=== PATIENT | female | born 1950 | race Asian ===

== ENCOUNTER → 2023-04-26 | Outpatient (CLI) | payer OTHER ==
[2023-04-26 09:17] LABS: Basophils # (auto) 0.1 10 ^3/uL (0-0.2); Basophils % (auto) 1.3 % (0.0-2.0); Eosinophils # (auto) 0.2 10 ^3/uL (0-0.8); Eosinophils % (auto) 1.8 % (0.0-7.0); Hematocrit 45.1 % (36.0-46.0); Hemoglobin 14.9 g/dL (12.2-16.2); Lymphocytes # (auto) 1.7 10 ^3/uL (0.4-5.4); Lymphocytes % (auto) 20.6 % (10.0-50.0); Mean Corpuscular Hemoglobin 30.7 pg (28.0-32.0); Mean Corpuscular Volume 93.1 fL (80.0-100.0); Monocytes # (auto) 0.4 10 ^3/uL (0-1.3); Monocytes % (auto) 5.1 % (0.0-12.0); Neutrophils % (auto) 71.2 % (37.0-80.0); Nucleated Red Blood Cells % 0.1 %; Red Blood Cells 4.85 10^6/uL (4.0-5.20); Red Cell Distribution Width 12.8 % (11.8-14.3); White Blood Cell 8.4 10^3/uL (4.4-10.8)
[2023-04-26 10:05] LABS: Potassium 4.4 mmol/L (3.5-5.1)
[2023-04-26 10:13] LABS: BUN/Creatinine Ratio 11.6 (10.0-20.0); Bilirubin, Total 0.4 mg/dL (0.2-1.0); Calcium 9.3 mg/dL (8.5-10.1); Total Protein 8.6 g/dL (6.4-8.2); Uric Acid 6.8 mg/dL (2.6-6.0)
== END | disposition home or self-care (01) ==
LOC: LAB 08:39
PROVIDERS: ATTEND Family Medicine
DX: I10 Essential (primary) hypertension (principal); R73.03 Prediabetes; D69.2 Other nonthrombocytopenic purpura; R73.09 Other abnormal glucose; E78.5 Hyperlipidemia, unspecified; E55.9 Vitamin D deficiency, unspecified; E78.2 Mixed hyperlipidemia; E79.0 Hyperuricemia without signs of inflammatory arthritis and tophaceous disease; G63 Polyneuropathy in diseases classified elsewhere
CPT/HCPCS: 36415; 80053; 80061; 82270; 83036; 84550; 85025

== ENCOUNTER → 2023-09-21 | Outpatient (CLI) | payer OTHER ==
[2023-09-21 08:34] LABS: Alanine Aminotransferase 17 U/L (7-40); Albumin 4.8 g/dL (3.2-4.8); Alkaline Phosphatase 88 U/L (46-116); Anion Gap 9 (5-15); Aspartate Aminotransferase 19 U/L (13-40); BUN/Creatinine Ratio 13.3 (10.0-20.0); Bilirubin, Total 0.7 mg/dL (0.2-1.0); Blood Urea Nitrogen 12 mg/dL (9-23); Calcium 9.8 mg/dL (8.5-10.1); Carbon Dioxide 27 mmol/L (20-30); Chloride 105 mmol/L (98-107); Cholesterol 170 mg/dL (< 200); Glucose 146 mg/dL (74-106); HDL Cholesterol 64 mg/dL (40-59); LDL Cholesterol 96 mg/dL (< 100); Sodium 141 mmol/L (136-145); Total Protein 8.2 g/dL (5.7-8.2); Triglycerides 131 mg/dL (< 150)
[2023-09-21 09:12] LABS: Uric Acid 6.9 mg/dL (3.1-7.8)
== END | disposition home or self-care (01) ==
LOC: LAB 07:28
PROVIDERS: ATTEND Family Medicine
DX: E78.2 Mixed hyperlipidemia (principal); E55.9 Vitamin D deficiency, unspecified; I69.30 Unspecified sequelae of cerebral infarction; R73.03 Prediabetes; Z79.01 Long term (current) use of anticoagulants
CPT/HCPCS: 36415; 80053; 80061; 83036; 84550

== ENCOUNTER → 2024-08-01 | Outpatient (CLI) | payer OTHER ==
[2024-08-01 08:24] LABS: Basophils # (auto) 0.1 10 ^3/uL (0-0.2); Basophils % (auto) 0.8 % (0.0-2.0); Eosinophils # (auto) 0.3 10 ^3/uL (0-0.8); Hematocrit 46.1 % (36.0-46.0); Hemoglobin 15.8 g/dL (12.2-16.2); Lymphocytes # (auto) 2.1 10 ^3/uL (0.4-5.4); Lymphocytes % (auto) 24.7 % (10.0-50.0); Mean Corpuscular Hemoglobin 31.5 pg (28.0-32.0); Mean Corpuscular Hgb Conc. 34.2 g/dL (32.0-36.0); Mean Corpuscular Volume 92.2 fL (80.0-100.0); Monocytes # (auto) 0.6 10 ^3/uL (0-1.3); Monocytes % (auto) 7.2 % (0.0-12.0); Neutrophils # (auto) 5.5 10 ^3/uL (1.6-8.6); Neutrophils % (auto) 64.3 % (37.0-80.0); Nucleated Red Blood Cells % 0.1 %; Platelet Count (auto) 261 10^3/uL (140-450); Red Cell Distribution Width 13.3 % (11.8-14.3); White Blood Cell 8.5 10^3/uL (4.4-10.8)
[2024-08-01 08:44] LABS: Anion Gap 8 (5-15); Carbon Dioxide 27 mmol/L (20-30); Chloride 105 mmol/L (98-107); Potassium 4.4 mmol/L (3.5-5.1); Sodium 140 mmol/L (136-145)
[2024-08-01 08:45] LABS: Calcium 9.9 mg/dL (8.7-10.4)
[2024-08-01 08:49] LABS: Glucose 131 mg/dL (74-106)
[2024-08-01 08:50] LABS: BUN/Creatinine Ratio 14.6 (10.0-20.0); Blood Urea Nitrogen 12 mg/dL (9-23); Triglycerides 173 mg/dL (< 150)
[2024-08-01 08:51] LABS: LDL Cholesterol 111 mg/dL (< 100)
[2024-08-01 08:52] LABS: Cholesterol 192 mg/dL (< 200); HDL Cholesterol 65 mg/dL (40-59)
[2024-08-01 09:20] LABS: Uric Acid 6.7 mg/dL (3.1-7.8)
== END | disposition home or self-care (01) ==
LOC: LAB 07:11
PROVIDERS: ATTEND Family Medicine
DX: R73.09 Other abnormal glucose (principal); E55.9 Vitamin D deficiency, unspecified; E79.0 Hyperuricemia without signs of inflammatory arthritis and tophaceous disease
CPT/HCPCS: 36415; 80048; 80061; 82306; 83036; 84550; 85025

== ENCOUNTER → 2025-02-20 | Outpatient (CLI) | payer OTHER ==
[2025-02-20 11:39] LABS: Urine Bacteria None Seen /hpf (None Seen)
[2025-02-20 11:53] LABS: Urine Amorphous Crystal FEW /hpf (None Seen); Urine Blood Negative /uL (Negative); Urine Clarity Turbid (Clear); Urine Color Colorless (Yellow); Urine Protein, UAD Negative (Negative); Urine Specific Gravity 1.009 (1.001-1.035); Urine Squamous Epithelial Cell FEW /hpf (<5); Urine Urobilinogen Normal (Negative); Urine WBC 2 /HPF (0-5); Urine pH 7.5 (5.0-9.0)
[2025-02-20 12:06] LABS: Basophils # (auto) 0.1 10 ^3/uL (0-0.2); Basophils % (auto) 0.8 % (0.0-2.0); Eosinophils # (auto) 0.2 10 ^3/uL (0-0.8); Eosinophils % (auto) 2.2 % (0.0-7.0); Hemoglobin 16.2 g/dL (12.2-16.2); Lymphocytes # (auto) 1.8 10 ^3/uL (0.4-5.4); Lymphocytes % (auto) 22.4 % (10.0-50.0); Mean Corpuscular Hemoglobin 30.6 pg (28.0-32.0); Mean Corpuscular Hgb Conc. 32.4 g/dL (32.0-36.0); Mean Corpuscular Volume 94.3 fL (80.0-100.0); Monocytes # (auto) 0.4 10 ^3/uL (0-1.3); Monocytes % (auto) 5.3 % (0.0-12.0); Neutrophils # (auto) 5.5 10 ^3/uL (1.6-8.6); Neutrophils % (auto) 69.3 % (37.0-80.0); Nucleated Red Blood Cells % 0.1 %; Platelet Count (auto) 267 10^3/uL (140-450); Red Cell Distribution Width 13.8 % (11.8-14.3)
[2025-02-20 12:48] LABS: Alanine Aminotransferase 18 U/L (7-40); Alkaline Phosphatase 102 U/L (46-116); Anion Gap 10 (5-15); Aspartate Aminotransferase 20 U/L (13-40); BUN/Creatinine Ratio 13.3 (10.0-20.0); Blood Urea Nitrogen 11 mg/dL (9-23); Carbon Dioxide 29 mmol/L (20-31); Chloride 102 mmol/L (98-107); Sodium 141 mmol/L (136-145); Triglycerides 149 mg/dL (< 150)
[2025-02-20 12:49] LABS: Albumin 5.5 g/dL (3.2-4.8); Bilirubin, Total 0.7 mg/dL (0.2-1.0); Calcium 10.5 mg/dL (8.7-10.4); Cholesterol 213 mg/dL (< 200); Glucose 123 mg/dL (74-106); HDL Cholesterol 76 mg/dL (40-59); LDL Cholesterol 121 mg/dL (< 100); Total Protein 9.1 g/dL (5.7-8.2)
[2025-02-20 13:05] LABS: Uric Acid 7.4 mg/dL (3.1-7.8)
== END | disposition home or self-care (01) ==
LOC: LAB 11:11
PROVIDERS: ATTEND Family Medicine
DX: Z12.11 Encounter for screening for malignant neoplasm of colon (principal); I69.959 Hemiplegia and hemiparesis following unspecified cerebrovascular disease affecting unspecified side; E78.2 Mixed hyperlipidemia; E55.9 Vitamin D deficiency, unspecified; E79.0 Hyperuricemia without signs of inflammatory arthritis and tophaceous disease; E63.9 Nutritional deficiency, unspecified; R73.03 Prediabetes; R73.09 Other abnormal glucose; Z86.69 Personal history of other diseases of the nervous system and sense organs; Z79.01 Long term (current) use of anticoagulants
CPT/HCPCS: 36415; 80053; 80061; 81001; 83036; 84443; 84550; 85025

== ENCOUNTER 2025-07-03 06:08 | Outpatient (CLI) | payer OTHER ==
[2025-07-03 07:02] LABS: Urine Protein, UAD TRACE (Negative)
[2025-07-03 07:31] LABS: Alanine Aminotransferase 24 U/L (7-40); Alkaline Phosphatase 87 U/L (46-116); Anion Gap 12 (5-15); BUN/Creatinine Ratio 15.2 (10.0-20.0); Bilirubin, Total 0.7 mg/dL (0.2-1.0); Blood Urea Nitrogen 12 mg/dL (9-23); Calcium 9.7 mg/dL (8.7-10.4); Carbon Dioxide 26 mmol/L (20-31); Chloride 103 mmol/L (98-107); Cholesterol 157 mg/dL (< 200); Potassium 3.7 mmol/L (3.5-5.1); Sodium 141 mmol/L (136-145); Total Protein 8.1 g/dL (5.7-8.2)
[2025-07-03 07:32] LABS: Albumin 5.1 g/dL (3.2-4.8); Glucose 133 mg/dL (74-106); HDL Cholesterol 62 mg/dL (40-59); Triglycerides 154 mg/dL (< 150)
== END 2025-07-03 17:00 | disposition home or self-care (01) ==
LOC: LAB 06:08
PROVIDERS: ATTEND Family Medicine
DX: E78.2 Mixed hyperlipidemia (principal); E83.52 Hypercalcemia; I25.10 Atherosclerotic heart disease of native coronary artery without angina pectoris
CPT/HCPCS: 36415; 80053; 80061; 81001; 83036; 83970